=== PATIENT | male | born 1985 | race African-American/Black ===

== ENCOUNTER 2024-07-24 01:55 | Emergency (ER) | payer OTHER, MEDICAID ==
[~2024-07-24] VITALS: Ht 177.8 cm; Wt 76.0 kg
[2024-07-24 02:01] VITALS: BP 116/66; PULSE 118; RESP 18; TEMP 36.9; O2SAT 100
[2024-07-24] MEDS: FLUORESCEIN SODIUM 1MG/STRIP LEFTEYE ONE (04:43)
[2024-07-24] MEDS ORDERED: NAPR-1176 MT (04:52)
[2024-07-24] MEDS ORDERED: OCUFLX LEFTEYE (04:52)
[2024-07-24] MEDS ORDERED: BENZ100C86 MT (04:52)
[2024-07-24 05:02] VITALS: TEMP 98.5
[2024-07-24] MEDS: ACETAMINOPHEN 325MG TABLET PO ONE (05:02)
== END 2024-07-24 05:03 | disposition home or self-care (01) ==
LOC: ER 02:15
DX: S05.00XA Injury of conjunctiva and corneal abrasion without foreign body, unspecified eye, initial encounter (principal); J06.9 Acute upper respiratory infection, unspecified; B97.89 Other viral agents as the cause of diseases classified elsewhere; F10.90 Alcohol use, unspecified, uncomplicated; Z79.1 Long term (current) use of non-steroidal anti-inflammatories (NSAID); W44.9XXA Unspecified foreign body entering into or through a natural orifice, initial encounter; Y93.89 Activity, other specified; Y92.89 Other specified places as the place of occurrence of the external cause; Y99.8 Other external cause status; Y90.9 Presence of alcohol in blood, level not specified
CPT/HCPCS: 99283